=== PATIENT | male | born 1965 | race Caucasian/White ===

== ENCOUNTER 2025-05-23 21:36 | Emergency (ER) | payer OTHER, SELFPAY ==
[2025-05-23 21:47] VITALS: BP 206/119; PULSE 118; RESP 25; TEMP 36.9; O2SAT 100; BMI 35.2
--- NOTE | 2025-05-23 21:47 | CT_ITS ---
PROCEDURE INFORMATION: Exam: CT Maxillofacial Without Contrast Exam date and time: 05/23/2025 10:15 PM Age: 59 years old Clinical indication: Injury or trauma; Fall; Blunt trauma (contusions or hematomas); Other: Intoxicated, facial trauma TECHNIQUE: Imaging protocol: Computed tomography of the face without contrast. Radiation optimization: All CT scans at this facility use at least one of these dose optimization techniques: automated exposure control; mA and/or kV adjustment per patient size (includes targeted exams where dose is matched to clinical indication); or iterative reconstruction. COMPARISON: CT HEAD/BRAIN WO CON 05/23/2025 10:13 PM FINDINGS: Paranasal sinuses: Mild mucosal thickening bilateral inferior maxillary sinuses. Orbital cavities: Orbits are normal. Globes are unremarkable. Bones: No fracture or bone destruction within the limitation of a motion degraded study. Soft tissues: Left frontal scalp hematoma image 3/. Left periorbital soft tissue swelling image . Other findings: Motion artifact degrades the images. IMPRESSION: 1. No fracture or bone destruction within the limitation of a motion degraded study. 2. The region of the mandibular condyles shows extensive motion degradation. 3. Left frontal scalp hematoma image 3/. 4. Left periorbital soft tissue swelling image /. 5. Mild mucosal thickening bilateral inferior maxillary sinuses.
--- NOTE | 2025-05-23 21:47 | XR_ITS ---
PROCEDURE INFORMATION: Exam: XR Chest Exam date and time: 05/23/2025 10:16 PM Age: 59 years old Clinical indication: Injury or trauma; Fall; Blunt trauma (contusions or hematomas); Additional info: Fall, intoxicated TECHNIQUE: Imaging protocol: Radiologic exam of the chest. Views: 1 view. COMPARISON: No relevant prior studies available. FINDINGS: Lungs: Low lung volumes. Pulmonary vasculature grossly normal. No gross pulmonary infiltrates or edema pattern. Pleural spaces: No pleural effusion. No pneumothorax. Heart/Mediastinum: Heart size normal. No tracheal/mediastinal shift. Vasculature: Mild aortic ectasia/tortuosity. Bones/joints: No acute osseous abnormalities are identified. Mild thoracic spondylosis. IMPRESSION: No acute thoracic process.
--- NOTE | 2025-05-23 21:47 | CT_ITS ---
PROCEDURE INFORMATION: Exam: CT Cervical Spine Without Contrast Exam date and time: 05/23/2025 10:17 PM Age: 59 years old Clinical indication: Injury or trauma; Fall; Blunt trauma; Additional info: Intoxicated, facial trauma TECHNIQUE: Imaging protocol: Computed tomography of the cervical spine without contrast. Radiation optimization: All CT scans at this facility use at least one of these dose optimization techniques: automated exposure control; mA and/or kV adjustment per patient size (includes targeted exams where dose is matched to clinical indication); or iterative reconstruction. COMPARISON: CT FACIAL BONES WO CON 05/23/2025 10:15 PM FINDINGS: Bones: Spine alignment is normal. No fracture or bone destruction. Bthr-kv-[id number] multilevel degenerative disc disease predominantly at C3-C4, C4-C5, C5-C6, C6-C7 levels with disc space narrowing and small disc osteophyte complexes. Lungs: Lung apices are normal. Soft tissues: Unremarkable. IMPRESSION: 1. Spine alignment is normal. 2. No fracture or bone destruction. 3. Cqoq-ie-cuxbsbko multilevel degenerative disc disease predominantly at C3-C4, C4-C5, C5-C6, C6-C7 levels with disc space narrowing and small disc osteophyte complexes.
--- NOTE | 2025-05-23 21:47 | CT_ITS ---
PROCEDURE INFORMATION: Exam: CT Head Without Contrast Exam date and time: 05/23/2025 10:13 PM Age: 59 years old Clinical indication: Injury or trauma; Fall; Blunt trauma (contusions or hematomas); Additional info: Intoxicated, head trauma TECHNIQUE: Imaging protocol: Computed tomography of the head without contrast. Radiation optimization: All CT scans at this facility use at least one of these dose optimization techniques: automated exposure control; mA and/or kV adjustment per patient size (includes targeted exams where dose is matched to clinical indication); or iterative reconstruction. COMPARISON: No relevant prior studies available. FINDINGS: Brain: No evidence for intracranial hemorrhage, mass lesions or acute stroke. Cerebral ventricles: No ventriculomegaly. Pituitary gland and sella: Negative Paranasal sinuses: Inferior maxillary sinus mucosal thickening bilaterally. Mastoid air cells: Visualized mastoid air cells are well aerated. Orbital cavities: Negative. Bones: Unremarkable. No acute fracture. Soft tissues: Left frontal scalp hematoma. Left periorbital soft tissue swelling. Vasculature: Negative. IMPRESSION: 1. Left frontal scalp hematoma. 2. Left periorbital soft tissue swelling. 3. No evidence for intracranial hemorrhage, mass lesions or acute stroke. 4. Inferior maxillary sinus mucosal thickening bilaterally.
--- OUTSIDE RECORDS SUMMARY | 2025-05-23 21:47 | XMS_ITS | Clinical Summary ---
Author Organization [facility] Address [address] [place] [id number] Phone Care Team Providers Care Funeral Driver Name Role Phone Unavailable Primary Care Provider Unavailabl e Allergies Active Allergy Reactions Criticality Noted Date Comments No Known Allergies 04/07/2016 Medications hydroCHLOROthiazi de (MICROZIDE) 12.5 mg Oral Capsule Take 1 Cap by mouth daily. 30 Cap 5 07/07/2016 Active meclizine (ANTIVERT) 25 mg Oral TabletIndications :Peripheral vestibulopathy, right,Tinnitus, unspecified laterality,Dizzin ess Take 1 Tab by mouth 3 times daily as needed for Dizziness. 60 Tab 1 08/04/2016 Active losartan-hydrochl orothiazide (HYZAAR) 50-12.5 mg Oral TabletIndications :Essential hypertension Take 1 Tab by mouth daily. 30 Tab 5 11/30/2016 Active Active Problems Problem Noted Date Diagnosed Date Meniere's disease of right ear 07/07/2016 Essential hypertension 04/12/2016 Surgical History Surgery Date Site/Laterality Comments APPENDECTOMY TONSILLECTOMY Medical History Medical History Date Comments Arm fracture childhood Family History Medical History Relation Name Comments Colon Cancer Paternal Grandfather Colon Cancer Paternal Uncle Relation Name Status Comments Paternal Grandfather Paternal Uncle Social History Tobacco Use Types Packs/Day Years Used Date Smoking Tobacco: Never Smokeless Tobacco: Never Tobacco Cessation:Counseling Given: No Alcohol Use Standard Drinks/Week Comments Yes 0 (1 standard drink = 0.6 oz pure alcohol) socially(2-3 times a week, few beers or liquor ) Sex and Gender Information Value Date Recorded Sex Assigned at Not on file Legal Sex Male 8:35 AM EST Gender Identity Not on file Sexual Orientation Not on file Obstetrics History Last Filed Vital Signs Vital Sign Reading Time Taken Comments Blood Pressure 120/80 11/30/2016 8:02 AM EST Pulse 88 11/30/2016 8:02 AM EST Temperature 36.8 C (98.2 F) 11/30/2016 8:02 AM EST Respiratory Rate 14 05/12/2016 2:41 PM EDT Oxygen Saturation 98% 11/30/2016 8:02 AM EST Inhaled Oxygen Concentration - - Weight 100.2 kg (221 lb) 11/30/2016 8:02 AM EST Height 170.2 cm (5' 7 ) 11/30/2016 8:02 AM EST Body Mass Index 34.61 11/30/2016 8:02 AM EST Plan of Treatment Health Maintenance Due Date Last Done Comments Annual Wellness Exam 1968 Hepatitis C Screening 1983 DTaP/TDaP/Td (1 - Tdap) 1984 Hepatitis B Vaccine (1 of 3 - 19+ 3-dose series) 1984 Cologuard 2010 FIT 2010 Sigmoidoscopy 2010 Virtual Colonography 2010 Pneumococcal Vaccine 50+ (1 of 1 - PCV) 2015 Zoster (1 of 2) 2015 Colon Cancer Screening 12/23/2019 Colonoscopy 12/23/2019 12/22/2016 COVID-19 Vaccine (1 - 2023-2 5 season) 2024 Influenza Vaccine (#1) 2025 6 (Declined) Meningococcal B Vaccine Aged Out No l onger eligible based on patient's age to complete this topic Goals Goal Patient Goal Type Associated Problems Recent Progress Patient-Stated? Author Blood Pressure < 140/90 Blood Pressure 120/80( 017 8:02 AM EST) No Syeda Landa RMA Procedures Procedure Name Priority Date/Time Associated Diagnosis Comments GMED COLONOSCOPY Routine 12/22/2016 7:00 AM EDT from Last 3 Months or Most Recently Relevant to Health Maintenance Results * [facility]ED COLONOSCOPY (12/22/2016 7:00 AM EDT) 12/22/2016 7:00 AM EDT Impressions [facility] - 12/22/2016 7:55 AM EDT Polyp (5 mm) in the cecum. (Polypectomy). Mild diverticulosis of the ascending colon and transverse colon. Polyps (3 mm) in the rectum. (Biopsy). Polyp (4 mm) in the rectum. (Polypectomy). Hypertrophied Anal Papillae in the distal rectum. Plan: Follow-up biopsy results. Minimize straining with bowel movements by maintaining a higher fiber diet and adding fiber supplementation as needed. If polyp is adenomatous, repeat colonoscopy in 3 years. If hyperplastic, repeat colonoscopy in 5 years. This section is an excerpt of the full report. us Maribel Wilcox MD GI PROCEDURE ORDERABLES Final Result [facility] [address] [place] [address] from Last 3 Months or Most Recently Relevant to Health Maintenance Insurance [employer] P[employer] PPO
--- OUTSIDE RECORDS SUMMARY | 2025-05-23 21:47 | XMS_ITS | Encounter Summary ---
Author Organization [facility] [place] [address] Care Team Providers Care Process Laboratory Specialist Name Role Phone Unavailable Primary Care Provider Unavailabl e Encounter Details Date Type Department Care Team (Late st Contact Info) Description 12/22/2016 Orders Only SEP Gastro [facility] [address] [facility] [address] [place] [address] Maribel Wilcox MD Social History Tobacco Use Types Packs/Day Years Used Date Smoking Tobacco: Never Smokeless Tobacco: Never Alcohol Use Standard Drinks/Week Comments Yes 0 (1 standard drink = 0.6 oz pure alcohol) socially(2-3 times a week, few beers or liquor ) Sex and Gender Information Value Date Recorded Sex Assigned at Not on file Legal Sex Male 8:35 AM EST Gender Identity Not on file Sexual Orientation Not on file documented as of this encounter Plan of Treatment Not on file documented as of this encounter Goals Goal Patient Goal Type Associated Problems Recent Progress Patient-Stated? Author Blood Pressure < 140/90 Blood Pressure 120/80( 017 8:02 AM EST) No Syeda Landa RMA documented as of this encounter Procedures Procedure Name Priority Date/Time Associated Diagnosis Comments GMED COLONOSCOPY Routine 12/22/2016 7:00 AM EDT documented in this encounter Results * GMED COLONOSCOPY (12/22/2016 7:00 AM EDT) 12/22/2016 7:00 AM EDT Impressions [facility] - 12/22/2016 7:55 AM EDT Polyp [...] Wilcox MD GI PROCEDURE ORDERABLES Final Result [facility] [address] [place] [address] documented in this encounter Visit Diagnoses Not on filedocumented in this encounter
--- NOTE | 2025-05-23 21:53 | PC.NURSE ---
PT noted to have a jock strap, flip flops and a testicle ring. Ring given to SO.
--- NOTE | 2025-05-23 22:11 | ED_ITS ---
Discharge Plan Disposition Patient Disposition: Home, Self-Care Referrals Follow up/Referrals: Provider,Referral, MD [Primary Care Provider, Medical] - See instructions Activity Restrictions/Add. Instructions Additional Instructions/Restrictions: Use the bacitracin ointment on your face 3 times a day to help prevent infection. Keep the wounds covered with nonadherent bandages. If you develop any new or worsening symptoms, such as pus draining from the wound, fever, increased redness or swelling, or if you become concerned for your health for any reason, return to the emergency department for evaluation. You do have a blood collection in your left ear and since you do not want it drained here in the emergency department, I recommend you follow-up with your nuclear medicine officer. I do also recommend that you follow-up with your primary care doctor next week for reassessment of your facial wounds. Clinical Impressions Clinical Impression: Abrasion of face, Hematoma of left auricular region, Fall Print Language Print Language: Icelandic Discharge ED Provider: Juan Judd General Adult HPI General Chief complaint: Head Injury Stated complaint: AO 05/23/252044 laceration forehead Time Seen by Provider: 05/23/25 21:38 Mode of Arrival: Wheelchair Source of Information: Patient and Significant Other Description of Symptoms (Recalled from ER Triage Doc. by RN): PT brought to the ED POV via WC for evaluation of L head. PT denies blood thinner. Denies and heart conditions. PT is noted to be intoxicated, stated he has ingested about 12 beers. History of Present Illness HPI narrative: Paul Sterling is a 59-year-old male with no significant past medical history who presents to the emergency department for concern for fall while intoxicated. Patient admits to drinking heavily today and had a witnessed ground-level fall onto gravel. He did hit his face on the gravel. Patient denies any pain at this time but was noted to have bleeding along the left side of his face. Patient has no other complaints or concerns at this time. Related Data Allergies Allergy/AdvReac Type Severity Reaction Status Date / Time No Known Allergies Allergy Verified 05/23/25 21:53 [facility] Disclaimer: The information contained in this section may have been updated after the patient was seen, as this information can be updated by other users. Social History Smoking Status: Never smoker alcohol intake: current current occupational status: employed Travel in the last 8 weeks?: None ROS Obtained: Yes Systems reviewed as appropriate & no additional complaints except as documented Physical Exam General General appearance: alert, in no apparent distress and appears intoxicated Head Head exam: other (Multiple abrasions over the left forehead, restorationist and periorbital region) Eye Eye exam: Present normal appearance and PERRL; Absent EOMI or conjunctival redness ENT ENT exam: Present normal external ear exam Neck Neck exam: Present full ROM Chest Chest inspection: Present symmetric chest wall rise Respiratory Respiratory exam: Present normal lung sounds bilaterally; Absent respiratory distress, wheezes or stridor Cardiovascular Cardiovascular exam: Present regular rate and normal rhythm Abdominal Exam Abdominal exam: Present soft; Absent tenderness or guarding exam: Present deferred Extremities Exam Extremities exam: Present normal inspection and full ROM; Absent tenderness Back Exam Back exam: Present normal inspection; Absent tenderness Neurological Exam Neurological exam: Present alert and oriented X3 Psychiatric Psychiatric exam: Present normal affect and anxious Skin Skin exam: Present warm and dry Medical Decision Making Medical Records Screening: Per USPSTF and CDC recommendations, given the prevalence of disease in our region, it is our hospital?s policy to screen for HIV and viral Hepatitis for all patients aged 18 and over and those with ongoing risk factors. Anthony Inquiry Pt receiving controlled substance: No Vital Signs: 05/23/25 21:47 05/23/25 23:51 Temperature 98.4 F 98.3 F Temperature Source Oral Oral Pulse Rate 99 H Pulse Rate [Right] 118 H Respiratory Rate 25 H 16 Blood Pressure 176/87 H Blood Pressure [Right Arm] 206/119 H Blood Pressure Mean [Right Arm] 148 Blood Pressure Source Automatic Cuff Blood Pressure Position Sitting 02 Sat by Pulse Oximetry 100 Oxygen Delivery Method Room Air Room Air Lab Data Lab Results 05/23/25 22:06: WBC 11.1 H, RBC 5.70, Hgb 16.3, Hct 48.6, MCV 85.3, MCH 28.6, MCHC 33.5, RDW 13.3, Plt Count 372, MPV 9.5, Neut % (Auto) 63.8, Lymph % (Auto) 28.5, [place] % (Auto) 5.4, Eos % (Auto) 1.4, Baso % (Auto) 0.5, Neut # (Auto) 7.1, Lymph # (Auto) 3.2, [place] # (Auto) 0.6, Eos # (Auto) 0.2, Baso # (Auto) 0.1, PT 11.5, INR 1.04, APTT 29.7, Sodium 144, Potassium 3.5, Chloride 106, Carbon Dioxide 24, Anion Gap 17.5 H, BUN 8 L, Creatinine 0.80, Estimated Creat Clear 144, Estimated GFR 99, Est GFR ( Amer) 120, Glucose 113 H, Calcium 9.3, Total Bilirubin 0.9, AST 48, ALT 43, Alkaline Phosphatase 73, Total Protein 8.4 H, Albumin 5.2 H, Globulin 3.2, Albumin/Globulin Ratio 1.6, Lipase 99 05/23/25 22:06 05/23/25 22:06 Orders (Tests/Meds): ED MEDICATIONS Discontinued Medications Generic Name Dose Route Start Last Admin Trade Name Freq PRN Reason Stop Dose Admin Bacitracin 1 gm 05/23/25 23:10 Bacitracin Zinc Oint 30gm Tube TP 05/23/25 23:11 TID ONE Tetanus/Reduced Diphtheria/Acell Pertussis 0.5 ml 05/23/25 22:05 05/23/25 22:37 Tet/Diphth/Pert-Adult 0.5ml Syringe IM 05/23/25 22:06 0.5 ml .ONCE ONE Administration ORDERS Category Date Time Status CT cervical spine wo con Stat Cat Scan 05/23/25 21:[address] facial bones wo con Stat Cat Scan 05/23/25 21:[address] head/brain wo con Stat Cat Scan 05/23/25 21:47 Completed CXR --portable [XR chest portable] Stat Exams 05/23/25 21:47 Completed CBC w/Auto Diff [Complete Blood Count Auto Diff] Stat Lab 05/23/25 22:06 Completed CMP [Comprehensive Metabolic Panel] Stat Lab 05/23/25 22:06 Completed Lipase Stat Lab 05/23/25 22:06 Completed PT INR [Prothrombin Time INR] Stat Lab 05/23/25 22:06 Completed PTT [Activated Partial Thrombo Time] Stat Lab 05/23/25 22:06 Completed Medical Decision Narrative: Paul Sterling is a 59-year-old male with no significant past medical history who presents to the emergency department for concern for fall while intoxicated. Patient admits to drinking heavily today and had a witnessed ground-level fall onto gravel. He did hit his face on the gravel. Patient denies any pain at this time but was noted to have bleeding along the left side of his face and was brought in by bystanders. Patient has no other complaints or concerns at this time. On arrival, patient is very anxious and intoxicated. He is hypertensive and tachycardic but sitting upright in bed and is GCS 15. Afebrile, maintaining appropriate oxygen saturation on room air. Physical exam, as stated above, revealed several abrasions to the patient's left forehead with gravel and some of the wounds. He was immediately irrigated with sterile water. Patient has no complaints of pain at this time. He is maintaining his airway appropriately. Physical exam is otherwise unremarkable for any obvious traumatic injuries. Differential diagnosis includes, but is not limited to: Intracranial hemorrhage, facial bone fracture, cervical spine fracture, laceration, foreign body, among others. The most morbid conditions were considered and workup was based on these. Workup in the emergency department included traumatic imaging as well as labs including: CT head without contrast, CT face without contrast, CT C-spine without contrast, CBC with differential, CMP, lipase, PT/INR, PTT. Patient was administered a tetanus shot update. Chest x-ray interpreted by me personally. No focal consolidation, no pneumothorax, no widened mediastinum, no enlargement of the cardiac silhouette. Unremarkable chest x-ray. See radiology report for details. CT imaging was interpreted by me personally. No intracranial hemorrhage, mass or midline shift. No skull fractures. No facial bone fractures. No cervical spine fracture or malalignment. See final radiology report for details. Laboratory workup was interpreted by me personally. Mild leukocytosis of 11.1 but otherwise CBC unremarkable. Coagulation studies unremarkable. CMP showed mild elevation in anion gap to 17.5 but was otherwise unremarkable nonactionable. Lipase normal at 99. On reassessment, patient's wounds were reassessed. Is felt that he has several skin tears and abrasions of the face but no lacerations that can be repaired. Patient does have a left auricular hematoma and I offered local anesthesia and drainage of this and explained that if this is not drained, he could develop cauliflower ear, however he did not want to proceed with having it drained at this time and states that he follows with nuclear medicine officer and his primary care doctor. I did explain that if this is not drained there is a high likelihood that it causes deformity and cauliflower ear and he was still adamant that he did not want this drained at this time and is okay with the cosmetic consequences. Patient's wounds will be treated with bacitracin ointment that he will take home and will place non-adherent bandages on his face. I did give him strict return precautions for any evidence of infection to these wounds and to keep them clean. Given this, is felt the patient is appropriate for discharge at this time as he has multiple friends at the bedside and will be driven home. Patient was in agreement with this plan. All questions were answered. He was then discharged from the emergency department in stable condition. Critical Care Critical Care Time Critical Care Time: No
[2025-05-23 22:26] LABS: Albumin Level 5.2 g/dl (3.5-5.0); Chloride 106 mmol/L (98-107); Potassium 3.5 mmoL/L (3.5-5.1); Sodium 144 mmol/L (136-145)
[2025-05-23 22:27] LABS: Hematocrit 48.6 % (42.0-52.0); Hemoglobin 16.3 g/dL (14.1-18.0); Immature Granulocytes % 0.4 %; Mean Corpuscular HGB Conc 33.5 g/dL (31.8-35.4); Mean Corpuscular Hemoglobin 28.6 pg (27.0-31.2); Mean Corpuscular Volume 85.3 fl (80-94); Nucleated Red Blood Cells % 0 %; Platelet Count 372 K/mm3 (142-424); Red Blood Count 5.70 M/mm3 (4.60-6.20); Red Cell Distribution Width-SD 41.4 fL; White Blood Count 11.1 K/mm3 (4.8-10.8)
[2025-05-23 22:28] LABS: Blood Urea Nitrogen 8 mg/dl (9-20); Creatinine Clearance Estimated 144 mL/min (50-200); Creatinine,Serum 0.80 mg/dl (0.66-1.25); Estimated Glomerular Filt Rate 99 ml/min (>60); GFR (African American) 120 ML/MIN (>60)
[2025-05-23 22:29] LABS: Alanine Aminotransferase 43 U/L (12-78); Alkaline Phosphatase 73 U/L (38-126); Aspartate Amino Transferase 48 U/L (17-59); Bilirubin,Total 0.9 mg/dl (0.2-1.3); Calcium 9.3 mg/dl (8.4-10.2); Glucose 113 mg/dl (74-100); Lipase 99 U/L (23-300); Total Protein,Serum 8.4 g/dl (6.3-8.2)
[2025-05-23 22:34] LABS: Albumin/Globulin Ratio 1.6 (1.1-1.8); Globulin 3.2 g/dL (1.3-3.2)
[2025-05-23] MEDS: TET/DIPHTH/PERT-ADULT 0.5ML SYRINGE 0.5 ML IM (22:37)
[2025-05-23 22:43] LABS: Activated Partial Thrombo Time 29.7 seconds (22.8-30.6); INR 1.04 (0.9-1.1); Prothrombin Time 11.5 seconds (10.1-12.5)
[2025-05-23 22:46] LABS: Anion Gap 17.5 mEq/L (5-15); Carbon Dioxide 24 mmol/L (22.0-30.0)
--- NOTE | 2025-05-23 23:46 | PC.NURSE ---
pt face wound irrigated with saline, bacitracin applied, and non adherent dressings. Pt refuses to let us wrap head. Pt friends and pt educated on cleansing of wound and follow up with pcp and ENT.
[2025-05-23 23:51] VITALS: BP 176/87; PULSE 99; RESP 16; TEMP 36.8; O2SAT 97
== END 2025-05-23 23:53 | disposition home or self-care (01) ==
PROVIDERS: Emergency Provider Student in an Organized Health Care Education/Training Program
DX: S00.432A Contusion of left ear, initial encounter (principal); S00.81XA Abrasion of other part of head, initial encounter; W19.XXXA Unspecified fall, initial encounter; Z23 Encounter for immunization
CPT/HCPCS: 70450; 70486; 71045; 72125; 80053; 83690; 85025; 85610; 85730; 90471; 90715; 99283; 99285